=== PATIENT | male | born 1950 | race Caucasian/White ===

== ENCOUNTER → 2016-10-27 | Day surgery (SDC) | payer MEDICARE ==
[~2016-10-27] VITALS: Ht 188 cm; Wt 94.1 kg
[~2016-10-27] MED LIST: ACETAMINOPHEN 1000 MG/100 ML VIAL IV ONE; BUPIVACAINE/EPINEPHRINE 0.25% 50 ML VIAL INFIL ONE; CHLORHEXIDINE GLUCONATE 2 % 1 PACK (2 CLOTHS) TOPICAL PRN; DO NOT ADM ANY ANTICOAGULANT DRUGS PRN; DOCUSATE SODIUM 100 MG CAP PO ONE; FAMOTIDINE 20 MG/2 ML VIAL ONE; HYDR-3580 PO; INSULIN HUMAN REGULAR 1,000 UNITS/10 ML VIAL SQ PRN; KETOROLAC TROMETHAMINE 60 MG/2 ML (IM) VIAL IM ONE; LACTATED RINGER'S 1000 ML IV PRN; METOPROLOL TARTRATE 25 MG TAB PO PRN; MIDAZOLAM HCL 2 MG/2 ML VIAL ONE; MORPHINE SULFATE 4 MG/ML INJ ONE; NORMOSOL R INJ 1,000 ML IV ONE; ONDANSETRON HCL 4 MG/2 ML VIAL IV PUSH ONE; ONDANSETRON HCL 4 MG/2 ML VIAL IV PUSH PRN; POVIDONE IODINE 5% (ANTISEPSIS KIT) 4 APPLICATIONS EACH NARE PRN; PROPOFOL 200 MG/20 ML AMP IV ONE; SODIUM CHLORID 0.9% 500 ML IV PRN; ceFAZolin 2 GM PREMIX 50 ML IV SCH; ePHEDrine/NS 25 MG/5 ML SYR IV ONE; fentaNYL CITRATE 250 MCG/5 ML AMP ONE; oxyCODONE/ACETAMINOPHEN 5 MG/325 MG TAB PO PRN
[2016-10-27 10:01] VITALS: BP 122/80; PULSE 75; RESP 20; TEMP 98; O2SAT 95
--- NOTE | 2016-10-27 10:10 | EKG ---
Date Performed: 10/27/2016 Time Performed: 09:48:36 PTAGE: 66 years EKG: Sinus rhythm NORMAL ECG NO PREVIOUS TRACING DOCTOR: Pavan Kim Interpretating Date/Time 10/27/2016 10:09:17
--- NOTE | 2016-10-27 11:39 | HHI.PR ---
Immediate Post Op Note Procedure Date: Oct 27, 2016 Pre Op Diagnosis: symptomatic cholelithiasis Post Op Diagnosis: same Surgeon: Glen Feldman MD [employer]her Operator(s): see or sheet Procedure: robotic asst laparoscopic cholecystectomy Findings: distended gallbladder with stones Complications: none Specimen(s) removed: gallbladder Estimated blood loss: 5cc Anesthesia: General Drains: None Patient to: PACU Patient Condition: Good Glen Feldman MD Oct 27, 2016 11:39
[2016-10-27 15:40] VITALS: BP 113/69; PULSE 81; RESP 16; TEMP 97.9; O2SAT 95
--- NOTE | 2016-10-29 16:52 | MP ---
cc: RAFA FELDMAN MD DATE OF SURGERY 10/27/16 PREOPERATIVE DIAGNOSIS Acute cholecystitis with symptomatic cholelithiasis. POSTOPERATIVE DIAGNOSIS Acute cholecystitis with symptomatic cholelithiasis. PROCEDURE PERFORMED Robotic-assisted laparoscopic cholecystectomy SURGEON Dr. Feliz Feldman MUSIC THERAPY TEACHER See OR sheet ANESTHESIA GETA IV FLUIDS 1800 mL. ESTIMATED BLOOD LOSS 5 mL. DRAINS None COMPLICATIONS None. WOUND CLASSIFICATION Clean contaminated SPECIMENS Gallbladder sent to pathology FINDINGS Distended gallbladder, large gallstones present. INDICATION The patient is a 66-year-old male who presented with complaints of acute onset of right side right upper quadrant abdominal pain. States that the pain continued to get worse. He came to the emergency department at [facility] where evaluation included CT scan and laboratory values. CT scan showed concern for distended gallbladder with multiple large gallstones. Therefore, decision made for cholecystectomy. Discussed with the patient in detail, agreed and would like to proceed. PROCEDURE IN DETAIL The patient was taken to the operating suite, placed in the supine position. He was prepped and draped in usual sterile fashion after induction of general endotracheal anesthesia. Brief time-out done stating correct patient, procedure, surgical site with all in agreement with this. Attention was first directed to the umbilicus where a stab neck incision was made. Veress needle placed and abdominal placement confirmed with saline drop test. Abdomen insufflated to 15 mm pneumoperitoneum. After cursory inspection, the Veress needle was changed for a 5-mm trocar. Scope entered with no evidence of injury. Several other trocars were placed. There was a left mid quadrant 8 mm trocar placed followed by a right mid quadrant, both anterior axillary line and midclavicular line. Eight mm trocar placed followed by a 5 mm assist port in the right lower quadrant. The 5-mm trocar was switched out for a 12-mm trocar at the umbilicus. Next, prior to port placement local anesthetic injected at all port sites. The patient was then placed in reverse Trendelenburg and airplaned to the left. The robotic docking station was brought in and attached to the ports. Camera was inserted, hook electro Bovie cautery was placed in #1 and a Prograsp was placed in the #2 arm. Epidemiology Intern identified, grasped the gallbladder, retracted cephalad. There were a couple of adhesions taken down to the gallbladder. I was at the console during technical aspects of the procedure. After the adhesions were brought down, the cystic duct and cystic artery were dissected out with a hook electro Bovie cautery. Two clips placed on the cystic artery. Once identified it was the only structures on the gallbladder that was arterial. Then Bovie cautery was used to transect the superior portion of the artery. The cystic duct was skeletonized and identified. Three clips were placed proximal on the cystic duct and one distal. Endoshears used to transect the cystic duct. Gallbladder was then removed from the gallbladder fossa. This was done with a hook electro Bovie cautery. The gallbladder was grasped and placed in EndoCatch bag. Electro Bovie cautery used for hemostasis. Ray-Shoaib was placed for further assistance and hemostasis. Then the robot was undocked and a conversion laparoscopically with identification of the gallbladder fossa noted to be relatively hemostatic. Hank was placed for further assistance with hemostasis. Gallbladder was removed through the umbilicus. Some difficulty and necessarily extending the incision due to a large gallstone in the gallbladder. The 12 trocar site was closed in a [id number] fashion with 0 Vicryl. Second simple Vicryl was placed for reinforcement. Next, local anesthetic was injected at all port sites. Electro Bovie cautery used for hemostasis at all port sites. 4-0 Monocryl used in subcuticular fashion followed by Mastisol and Steri-Strips and sterile dressings. The patient tolerated the procedure well. There were no intraoperative complication. The patient was extubated, taken stable to the PACU. All lap and instrument counts correct at the end of the procedure. MD RADHA Muñoz/ /9:08 PM /4:34 PM
== END | disposition home or self-care (01) ==
LOC: HSDC 09:11
PROVIDERS: ATTEND Surgery
DX: K80.12 Calculus of gallbladder with acute and chronic cholecystitis without obstruction (principal); Z01.810 Encounter for preprocedural cardiovascular examination
CPT/HCPCS: 00790; 47562; 88304; 93005; J0131; J0690; J1885; J2250; J2270; J2405; J3010; J7120